=== PATIENT | female | born 1935 | race Caucasian/White ===

== ENCOUNTER → 2017-02-01 | Outpatient (CLI) | payer OTHER ==
[~2017-02-01] MED LIST: AMLODIPINE BESYL5 MG PO; HYDROCHLOROTH12.5 MG PO; VITAMIN C PO; VITAMIN D-32000 UNI1 PO
== END | disposition home or self-care (01) ==
LOC: CSSDAY 10:20
DX: M81.0 Age-related osteoporosis without current pathological fracture (principal)
CPT/HCPCS: 96372; J0897